=== PATIENT | male | born 1975 | race African-American/Black ===

== ENCOUNTER 2018-02-10 12:05 | Emergency (ER) | payer SELFPAY ==
[~2018-02-10] VITALS: Ht 175.3 cm; Wt 73.4 kg
[2018-02-10] MEDS ORDERED: MORPHINE SULFATE 4 MG/ML, 1ML ONE (12:35)
[2018-02-10] MEDS ORDERED: ONDANSETRON 2MG/ML, 2ML ONE (12:35)
[2018-02-10] MEDS ORDERED: FAMOTIDINE 20 MG/2 ML ONE (12:46)
[2018-02-10 12:54] LABS: BASOPHILS # (AUTO) 0.02 x10^3/uL (0-0.1); BASOPHILS % (AUTO) 0 % (0-1); EOSINOPHILS # (AUTO) 0.01 x10^3/uL (0-0.4); EOSINOPHILS % (AUTO) 0 % (1-7); LYMPHOCYTES # (AUTO) 0.45 x10^3/uL (1-3.4); LYMPHOCYTES % (AUTO) 4 % (22-44); MD NO; MEAN CORPUSCULAR HEMOGLOBIN 30.4 pg (27.5-34.5); MEAN CORPUSCULAR HGB CONC 33.8 g/dL (33.2-36.2); MEAN CORPUSCULAR VOLUME 90.2 fL (81-97); MONOCYTES % (AUTO) 4 % (2-9); NEUTROPHILS # (AUTO) 9.78 x10^3/uL (1.8-6.8); NEUTROPHILS % (AUTO) 92 % (42-75); PLATELET COUNT 158 x10^3/uL (130-400); RED BLOOD COUNT 5.66 x10^6/uL (4.38-5.82); RED CELL DISTRIBUTION WIDTH 13.4 % (9.4-14.8)
[2018-02-10] MEDS ORDERED: SODIUM CHLORIDE FLUSH 10ML SYR IVF ONE (13:00)
[2018-02-10] MEDS ORDERED: MORPHINE SULFATE 4 MG/ML, 1ML IVPush PRN (13:00)
[2018-02-10] MEDS ORDERED: FAMOTIDINE 20 MG/2 ML IVP ONE (13:00)
[2018-02-10] MEDS ORDERED: ONDANSETRON 2MG/ML, 2ML IVPush ONE (13:00)
[2018-02-10] MEDS ORDERED: SODIUM CHLORIDE 0.9% 1,000ML IVBOLUS ONE (13:00)
[2018-02-10 13:05] LABS: ALANINE AMINOTRANSFERASE 38 U/L (12-78); ALBUMIN 4.4 g/dL (3.4-5.0); ANION GAP 10 mmol/L (5-15); CALCIUM 9.2 mg/dL (8.5-10.1); CHLORIDE 110 mmol/L (98-107); CREATININE 1.02 mg/dL (0.7-1.3)
[2018-02-10 13:09] LABS: ALKALINE PHOSPHATASE 77 U/L (45-117); BILIRUBIN,TOTAL 0.7 mg/dL (0.2-1.0); TOTAL PROTEIN 8.7 g/dL (6.4-8.2); TROPONIN I < 0.015 ng/mL (0.000-0.045)
[2018-02-10 14:20] VITALS: BP 142/86
== END 2018-02-10 14:22 | disposition home or self-care (01) ==
LOC: ED 13:14
DX: K52.9 Noninfective gastroenteritis and colitis, unspecified (principal); R06.02 Shortness of breath
CPT/HCPCS: 36415; 71045; 76700; 80053; 83690; 83880; 84484; 85025; 93005; 96361; 96374; 96375; 99285; J2405; J7030; S0028

== ENCOUNTER 2021-02-21 17:49 | Emergency (ER) | payer MEDICAID, OTHER ==
[~2021-02-21] VITALS: Ht 177.8 cm; Wt 78.0 kg
--- NOTE | 2021-02-21 19:18 | NUR ---
THIS RN BROUGHT PATIENT BACK TO ROOM. PATIENT STATES HE ALREADY PROVIDED A URINE SAMPLE. DENIES ANY NEEDS AT THIS TIME. BED IN LOW POSITION. CALL ARENAS IN REACH. WILL CONTINUE TO MONITOR.
[2021-02-21] MEDS ORDERED: ONDANSETRON 2MG/ML, 2ML IVPush ONE (19:30)
[2021-02-21] MEDS ORDERED: SODIUM CHLORIDE 0.9% 1,000 ML IV ONE (19:30)
[2021-02-21] MEDS ORDERED: SODIUM CHLORIDE FLUSH 10ML SYR IVF ONE (19:30)
[2021-02-21] MEDS ORDERED: HYDROmorphone 1 MG/ML, 1ML INJ IV ONE (19:30)
[2021-02-21] MEDS ORDERED: HYDROmorphone 2 MG/ML, 1ML ONE (19:44)
[2021-02-21] MEDS ORDERED: ONDANSETRON 2MG/ML, 2ML ONE (19:44)
[2021-02-21 19:51] LABS: BASOPHILS % (AUTO) 1 % (0-1); EOSINOPHILS % (AUTO) 2 % (1-7); LYMPHOCYTES % (AUTO) 23 % (22-44); MEAN CORPUSCULAR HEMOGLOBIN 31.5 pg (27.5-34.5); MEAN CORPUSCULAR HGB CONC 34.4 g/dL (33.2-36.2); MEAN PLATELET VOLUME 10.5 fL (7.4-10.4); MONOCYTES % (AUTO) 10 % (2-9); NEUTROPHILS % (AUTO) 65 % (42-75); PLATELET COUNT 142 x10^3/uL (130-400); RED BLOOD COUNT 5.11 x10^6/uL (4.38-5.82); RED CELL DISTRIBUTION WIDTH 13.8 % (9.4-14.8)
[2021-02-21 20:01] LABS: ALANINE AMINOTRANSFERASE 24 U/L (12-78); ALBUMIN 3.8 g/dL (3.4-5.0); ANION GAP 5 mmol/L (5-15); CALCIUM 9.1 mg/dL (8.5-10.1); CHLORIDE 109 mmol/L (98-107)
[2021-02-21 20:04] LABS: ALKALINE PHOSPHATASE 75 U/L (45-117); BILIRUBIN,TOTAL 0.2 mg/dL (0.2-1.0)
--- NOTE | 2021-02-21 20:16 | NUR ---
PATIENT TO CT AT THIS TIME.
[2021-02-21] MEDS ORDERED: OMNIPAQUE 350 MG/ML, 100ML BOTTLE ONE (20:27)
--- NOTE | 2021-02-21 20:30 | NUR ---
CALLED LAB TO CONFIRM THEY HAVE PATIENTS URINE SAMPLE.
[2021-02-21 20:39] LABS: MICROSCOPIC NOT IND
[2021-02-21 21:22] VITALS: BP 127/75
--- NOTE | 2021-02-21 21:24 | NUR ---
Patient given discharge instructions and they have confirmed that they understand the instructions. Patient ambulatory with steady gait. NAD, all questions answered appropriately, denies additional needs at this time. No personal belongings left in room after discharge.
== END 2021-02-21 21:26 | disposition home or self-care (01) ==
LOC: ED 18:20
DX: R10.84 Generalized abdominal pain (principal); R19.7 Diarrhea, unspecified; R11.0 Nausea
CPT/HCPCS: 36415; 74177; 80053; 81003; 83605; 85025; 87491; 87591; 96361; 96374; 96375; 99285; J1170; J2405; J7030; Q9967